=== PATIENT | female | born 1980 | race Native Hawaiian/Other Pacific Islander ===

== ENCOUNTER 2018-09-28 13:46 | Outpatient (CLI) | payer OTHER ==
[2018-09-28 14:33] LABS: HEMATOCRIT 30.8 % (36.0-47.0); HEMOGLOBIN 9.9 g/dl (12.0-15.5); MEAN CORPUSCULAR HEMOGLOBIN 27.2 pg (27.0-33.0); MEAN CORPUSCULAR HGB CONC 32.1 g/dl (32.0-36.5); MEAN CORPUSCULAR VOLUME 84.6 fl (80.0-96.0); PLATELET COUNT, AUTOMATED 224 10^3/uL (150-450); RED BLOOD COUNT 3.64 10^6/uL (4.00-5.40); RED CELL DISTRIBUTION WIDTH 14.6 % (11.5-14.5); WHITE BLOOD COUNT 7.5 10^3/uL (4.0-10.0)
[2018-09-28 15:01] LABS: ALT/SGPT 14 U/L (12-78); AST/SGOT 21 U/L (7-37); BILIRUBIN,TOTAL 0.5 MG/DL (0.2-1.0); CREATININE FOR GFR 0.95 MG/DL (0.55-1.30); GLOMERULAR FILTRATION RATE > 60.0 (>60); LDH LACTATE DEHYDROGENASE 175 U/L (84-246); URIC ACID 5.6 MG/DL (2.6-6.0)
[2018-09-28 15:29] LABS: TOTAL PROTEIN,RANDOM URINE 19.6 MG/DL (0.0-12.0)
[2018-09-28 15:29] LABS: CREATININE,RANDOM URINE 85.3 MG/DL
== END 2018-09-28 16:19 | disposition home or self-care (01) ==
LOC: M LDO 13:46
DX: O13.3 Gestational [pregnancy-induced] hypertension without significant proteinuria, third trimester (principal); Z3A.38 38 weeks gestation of pregnancy
CPT/HCPCS: 59025

== ENCOUNTER 2018-09-29 15:41 | Inpatient (IN) | payer OTHER ==
[2018-09-29] MEDS: LACTATED RINGER'S 1000 ML IV (16:41)
[2018-09-29] MEDS: LR 1,000 ML IV (16:52)
[2018-09-29 17:07] LABS: HEMATOCRIT 30.6 % (36.0-47.0); MEAN CORPUSCULAR HEMOGLOBIN 27.3 pg (27.0-33.0); MEAN CORPUSCULAR HGB CONC 32.7 g/dl (32.0-36.5); MEAN CORPUSCULAR VOLUME 83.6 fl (80.0-96.0); PLATELET COUNT, AUTOMATED 230 10^3/uL (150-450); RED BLOOD COUNT 3.66 10^6/uL (4.00-5.40); RED CELL DISTRIBUTION WIDTH 14.5 % (11.5-14.5); WHITE BLOOD COUNT 5.7 10^3/uL (4.0-10.0)
[2018-09-29] MEDS: OXYTOCIN DRIP 30 UNITS in APPROPRIATE DILUENT 1 EA IV (17:16)
[2018-09-30] MEDS ORDERED: FENTANYL 2MCG/ML ROPIVACAINE 0.2% IN 0.9% NACL 200ML IVBAG As Ordered (00:29)
[2018-09-30] MEDS ORDERED: EPIDURAL/PCA KEYS XX (01:30)
[2018-09-30] MEDS ORDERED: REFRIGERATOR IV KEYS XX (01:30)
[2018-09-30] MEDS ORDERED: diphenhydrAMINE INJ 50MG/ML VIAL (J1200) IV (01:30)
[2018-09-30] MEDS ORDERED: ONDANSETRON 4MG/2ML VIAL (J2405) IV (01:30)
[2018-09-30] MEDS ORDERED: ePHEDrine SULFATE 25 MG/5 ML(5MG/ML) SYRINGE IV (01:30)
[2018-09-30] MEDS ORDERED: EPIDURAL COMMENT XX (01:30)
[2018-09-30] MEDS ORDERED: NALOXONE INJ 0.4 MG/1 ML VIAL (J2310) IV (01:30)
[2018-09-30] MEDS ORDERED: FENTANYL/ROPIVACAINE/NACL BAG 200 ML EPIDURAL (01:30)
[2018-09-30] MEDS ORDERED: LACTATED RINGER'S 1000 ML IV (01:30)
[2018-09-30] MEDS ORDERED: METOCLOPRAMIDE INJ 10MG/2ML VIAL (J2765) IV (10:00)
[2018-09-30] MEDS ORDERED: ACETAMINOPHEN TAB 650MG DOSE (2X325MG) PO (10:00)
[2018-09-30] MEDS ORDERED: DIBUCAINE 1% OINTMENT 30GM TOP (10:00)
[2018-09-30] MEDS: OXYTOCIN DRIP 30 UNITS in APPROPRIATE DILUENT 1 EA IV (10:16)
[2018-09-30] MEDS: LR 1,000 ML IV (10:16)
[2018-09-30] MEDS: DOCUSATE SODIUM 100 MG CAP PO (21:00)
[2018-09-30] MEDS: IBUPROFEN 800 MG TAB PO (21:14)
[2018-10-01] MEDS: RHOGAM 300 MCG (1500 IU) INJ (J2790) IM (07:23)
[2018-10-01] MEDS: MEASLES,MUMPS,RUBELLA VACCINE INJ (MMR-II) (90707) SC (07:23)
[2018-10-01] MEDS: DOCUSATE SODIUM 100 MG CAP PO (09:00)
[2018-10-01] MEDS: PRENATAL VITAMINS CHEWABLE TABLET PO (09:00)
== END 2018-10-01 11:57 | disposition home or self-care (01) | DRG 807 ==
LOC: M LDI 15:41 → M OBS 09-30 12:41
PROVIDERS: Obstetrics & Gynecology
PROC: 3E033VJ Introduction of Other Hormone into Peripheral Vein, Percutaneous Approach (ICD-10-PCS; 2018-09-29)
PROC: 10E0XZZ Delivery of Products of Conception, External Approach (ICD-10-PCS; principal; 2018-09-30)
DX: O13.4 Gestational [pregnancy-induced] hypertension without significant proteinuria, complicating childbirth (principal); Z37.0 Single live birth; Z3A.39 39 weeks gestation of pregnancy; Z88.0 Allergy status to penicillin